=== PATIENT | female | born 1930 | race Two or more races ===

== ENCOUNTER 2016-10-10 16:53 | Emergency (ER) | payer MEDICARE, MEDICAID ==
[2016-10-10] MEDS ORDERED: IOPAMIDOL 300 (61%) 150 ML VIAL IV ONE (16:54)
[2016-10-10 17:18] LABS: PH,URINE 6.5 (5.0-8.0); SPECIFIC GRAVITY 1.015 (1.001-1.030); URINE BILIRUBIN NEGATIVE (NEGATIVE); URINE BLOOD 1+ (NEGATIVE); URINE GLUCOSE (UA) NEGATIVE (NEGATIVE); URINE LEUKOCYTE ESTERASE NEGATIVE (NEGATIVE); URINE NITRITE NEGATIVE (NEGATIVE); URINE PROTEIN TRACE (NEGATIVE); URINE UROBILINOGEN NORMAL (0-1 mg/dl)
[2016-10-10 17:23] LABS: URINE APPEARANCE CLEAR; URINE COLOR YELLOW
[2016-10-10 17:44] LABS: URINE BACTERIA RARE; URINE EPITHELIAL CELLS 0-2 /hpf; URINE RBC 0-3 /hpf; URINE WBC 0-2 /hpf
[2016-10-10 18:41] LABS: ABSOLUTE NEUTROPHIL COUNT 4.6 K/mm3 (1.8-7.7); BASO % 0.5 % (0.2-1.0); EOS # 0.1 (0.0-0.5); EOS % 1.9 % (0.9-2.9); HEMATOCRIT 35.3 % (37.0-47.0); HEMOGLOBIN 11.7 gm/l (12.0-16.0); IMM NEUT% 0.3 % (0-1); LYMPH # 1.1 (1.0-4.8); LYMPH % 16.9 % (15-45); MEAN CELL VOLUME 103.5 fl (81.0-99.0); MEAN CORPUSCULAR HEMOGLOBIN 34.3 pg (27.0-31.0); MEAN CORPUSCULAR HGB CONC 33.1 g/dl (33.0-37.0); MEAN PLATELET VOLUME 8.8 fl (7.4-10.4); MONO # 0.6 (0.0-0.8); MONO % 9.8 % (4-12); NEUT % 70.6 % (43-75); PLATELET COUNT 207 K/mm3 (130-400); RED CELL DISTRIBUTION WIDTH 12.1 % (11.5-14.5)
[2016-10-10 18:52] LABS: ALBUMIN 3.4 gm/dL (3.5-5.7); CALCIUM 9.3 mg/dL (8.6-10.3)
--- NOTE | 2016-10-10 19:53 | CT ---
CT ABDOMEN AND PELVIS WITH CONTRAST HISTORY: Low back pain and lower abdominal pain. TECHNIQUE: Following intravenous administration of 125 mL Isovue-300, contiguous axial images were acquired from the lung bases to the ischial tuberosities. Oral contrast was not administered. COMPARISON: 01/20/2016 FINDINGS: LUNG BASES: By basilar atelectatic change, early left lower lobe pneumonia is possible. LIVER: No focal lesion. SPLEEN: No focal lesion. STOMACH: Small to moderate hiatal hernia. HEART: Extensive atherosclerotic calcifications of the coronary arteries. PANCREAS: No focal lesion. ADRENAL GLANDS: No mass effect. KIDNEYS: Minor renal cortical scarring on the right. 10 mm left renal cyst. No collecting system dilatation is noted. GALLBLADDER: Surgically absent. BOWEL: Moderate rectal fecal load. There is redemonstration of a prominent left lower quadrant hernia with extensive bowel content, hernia sac currently measuring approximately 15.6 x 14.0 cm, compared to 17.0 x 14.8 cm previously no abnormal bowel dilatation is noted. There is generalized laxity of the anterior abdominal wall. APPENDIX: Not identified. PELVIC ORGANS: No gross mass effect. FREE FLUID: No gross free fluid identified. INGUINAL REGIONS: Small fatty hernia formation. ABDOMINOPELVIC LYMPH NODES: No abnormally enlarged lymph nodes identified. ABDOMINAL AORTA: Moderate atherosclerotic calcification without aneurysmal dilatation. OSSEOUS STRUCTURES: Findings of lower lumbar facet degeneration with multilevel compression deformities throughout the thoracic lumbar spine, grossly unchanged in extent prominent facet degeneration at the L4-5 and L5-S1 levels. Lower lumbar canal stenosis is noted IMPRESSION: 1. Redemonstration of large lateral abdominal wall hernia with bowel content without obstructive change. Nonobstructive appearance of more proximal bowel. 2. Suggested rectal fecal impaction. 3. Aortoiliac atherosclerotic disease and lumbar spondylosis. Lower lumbar canal stenosis. 4. Postcholecystectomy change. 5. Hiatal hernia. 6. Bibasilar atelectatic change, left lower lobe pneumonia is possible. 7. Evidence of coronary artery disease. 8. Evidence of multiple remote thoracic lumbar compression fractures. Results were electronically transmitted to the electronic medical record at 10/10/2016 at 1949 hours.
== END 2016-10-10 23:16 | disposition home or self-care (01) ==
LOC: ED 16:53
DX: M54.5 Low back pain (principal); I10 Essential (primary) hypertension; E11.9 Type 2 diabetes mellitus without complications; H40.9 Unspecified glaucoma; H54.0 Blindness, both eyes; Z79.4 Long term (current) use of insulin; Z86.73 Personal history of transient ischemic attack (TIA), and cerebral infarction without residual deficits